=== PATIENT | female | born 1950 | race Caucasian/White ===

== ENCOUNTER 2021-07-13 10:17 | Day surgery (SDC) | payer MEDICARE, SELFPAY ==
[2021-07-09 12:51] VITALS: BMI 25.0
--- NOTE | 2021-07-11 13:02 | P.CONAN_ITS ---
Documented by User: Olga Mccormick NP 07/11/21 13:03 HPI - Anesthesia Eval Consult details Narrative: 71yo F for Colonoscopy [facility] Past Medical History Medical History (Updated 07/09/21 @ 12:50 by Geneva Giles RN) Asthma COPD (chronic obstructive pulmonary disease) Lupus Raynauds disease Renal stones Surgical History Surgical History (Updated 07/09/21 @ 12:51 by Geneva Giles RN) H/O colonoscopy Hx of appendectomy Hx of tonsillectomy Social History Social History Patient Tobacco Use Status: Former Tobacco user Tobacco use type: Cigarette Smoked in Last 30 Days: No Use of substances other than those prescribed or required for medical reasons: No Are you DNR?: No Advance Directives: No Advance Directives Information Provided: Yes Recently lost weight without trying: No Nutrition Risks: No Nutritional Risk Meds Allergies Allergy/AdvReac Type Severity Reaction Status Date / Time aspirin [ASA] AdvReac Unknown Verified 07/13/21 11:09 epinephrine AdvReac Fainting Verified 07/13/21 10:40 Home Medications Medication Instructions Recorded Confirmed Last Taken Type multivitamin 1 tab PO DAILY 07/09/21 07/09/21 Unknown History Exam Exam Date and Time: July 11, 2021 1302 Height,Weight and Vital Signs: Height 5 ft 0.5 in Weight 58.967 kg Assessment and Plan Assessment Anesthesia Assessment: Chart Reviewed Documented by User: Fabi Murcia MD 07/13/21 11:51 [facility] Past Medical History Medical History (Updated 07/09/21 @ 12:50 by Geneva Giles RN) Asthma COPD (chronic obstructive pulmonary disease) Lupus Raynauds disease Renal stones Family History Family history of problems with anesthesia: No Surgical History Surgical History (Updated 07/09/21 @ 12:51 by Geneva Giles RN) H/O colonoscopy Hx of appendectomy Hx of tonsillectomy History of Problems with Anesthesia: No Social History Social History Patient Tobacco Use Status: Former Tobacco user Tobacco use type: Cigarette Smoked in Last 30 Days: No Use of substances other than those prescribed or required for medical reasons: No Are you DNR?: No Advance Directives: No Advance Directives Information Provided: Yes Recently lost weight without trying: No Nutrition Risks: No Nutritional Risk Meds Allergies Allergy/AdvReac Type Severity Reaction Status Date / Time aspirin [ASA] AdvReac Unknown Verified 07/13/21 11:09 epinephrine AdvReac Fainting Verified 07/13/21 10:40 Home Medications Medication Instructions Recorded Confirmed Last Taken Type multivitamin 1 tab PO DAILY 07/09/21 07/09/21 Unknown History Exam Height,Weight and Vital Signs: Height 5 ft 0.5 in Weight 58.967 kg Vital Signs Temp Pulse Resp BP Pulse Ox 07/13/21 11:49 98.9 F 72 16 126/78 99 Airway Mallampati Class: II TM Dist: >3cm Neck ROM: Full Loose/Missing/Broken Teeth: No Heart: RRR Lungs: CTAB Assessment and Plan Assessment Anesthesia Assessment: Anesthesia Plan Discussed Final Anesthetic Review Family History of Problems with Anesthesia: No History of Problems with Anesthesia: No NPO: Yes ASA Class: II Final Preanesthetic Review: No Changes in Pt Med Stat, Meds/Allgs Chart Reviewed, Consent Obtained/Reviewed and Anes Risks/Benef Reviewed Patient Risk: Low Procedure Risk: Low Assessment/Block/Sedation in SS: Assess/Block/Sedation-SS Anesthetic Plan Anesthetic Plan: MAC: Disposition: Standard PACU
[2021-07-13 10:41] VITALS: BMI 21.9
--- NOTE | 2021-07-13 11:10 | PC.NURSE ---
assisted md bryant with concerns for abdominal wall bumps. assessed by bedside. bialterl hands red and cold. has a history of raynauds.
[2021-07-13] MEDS: Lactated Ringers 1,000 ML 100 ML IVCONT (11:18)
[2021-07-13 11:49] VITALS: BP 126/78; PULSE 72; RESP 16; TEMP 37.2; O2SAT 99
--- NOTE | 2021-07-13 13:13 | PM.OP ---
Brief Operative Note Date of Service: 07/13/21 Pre-op diagnosis: Screening Post-op diagnosis: other (Colon polyps) Procedure: Colonoscopy to the cecum and TI with cold snare polypectomy x 2 Surgeon: Ras Lester Anesthesia: MAC Was an Motion Picture Commentator used for this Procedure?: No Estimated blood loss (mL): 2.0 Pathology: other (A. Colon polyp at 20cm) Condition: stable Disposition: PACU
[2021-07-13 13:14] VITALS: BP 99/57; PULSE 72; RESP 15; TEMP 36.3; O2SAT 97
[2021-07-13 13:29] VITALS: BP 119/73; PULSE 68; RESP 16; TEMP 36.3; O2SAT 100
--- NOTE | 2021-07-14 00:01 | OP_ITS ---
SURGEON: Ras Lester MD INDICATIONS: The patient presents for evaluation of colorectal cancer screening. Full consent obtained from her for this, including risks of bleeding and perforation. PREOPERATIVE DIAGNOSIS: Colorectal cancer screening. POSTOPERATIVE DIAGNOSIS: PROCEDURE PERFORMED: Colonoscopy to the cecum and terminal ileum with cold snare polypectomy. ESTIMATED BLOOD LOSS: COMPLICATIONS: ANESTHESIA: Monitored anesthesia care. ASSISTANTS: SPECIMENS: POSTOPERATIVE DIAGNOSES: Colorectal cancer screening, colon polyps, diverticulosis, and internal hemorrhoids. DESCRIPTION OF PROCEDURE: The patient was placed in the left lateral decubitus position. The digital rectal exam revealed no abnormalities. The Olympus video pediatric colonoscope was entered into the rectum and advanced easily to the cecum. Once in the cecum, I did identify normal-appearing cecal pouch with appendiceal orifice and a normal-appearing ileocecal valve. The terminal ileum was cannulated and appeared normal. The scope was withdrawn back in the colon. The entire cecum and ileocecal valve appeared normal. The scope was slowly withdrawn assessing all mucosal surfaces carefully. Preparation was excellent. In the ascending colon, there was an approximately 6 to 8 mm grossly adenomatous polyp, which was removed with cold snare polypectomy. However, the specimen was not recovered. The polypectomy site appeared clean, without any sign of residual polyp nor significant bleeding. At 20 cm, there was an approximately 6 mm polyp, which was removed with the cold snare polypectomy and recovered by suction. The polypectomy site appeared clean, without any sign of residual polyp nor any significant bleeding. I did not visualize any other polyps, colitis, or angiodysplasia. There was a mild amount of sigmoid diverticulosis. In the rectum, scope was retroflexed visualizing internal hemorrhoids, but no other pathology. The rectal mucosa appeared normal. The scope was straightened and withdrawn from the patient. She tolerated the procedure well and was returned to recovery area in stable condition. IMPRESSION: 1. Colon polyps, status post cold snare polypectomy. 2. Diverticulosis. 3. Internal hemorrhoids. PLAN: The results of the pathology will be checked. I would recommend a repeat colonoscopy in 5 years for further surveillance. She will otherwise continue her dietary regimen of increased fiber in order to keep her bowel movements more regular. She will see me again on a p.r.n. basis. She was advised not to use any aspirin and NSAIDs for 1 week. MD JAYDA Pillai/GERARD / [id number]
== END 2021-07-13 14:10 | disposition home or self-care (01) ==
PROVIDERS: PCP Family Medicine; Visit Provider Internal Medicine
PROC: 0DJD8ZZ Inspection of Lower Intestinal Tract, Via Natural or Artificial Opening Endoscopic (ICD-10-PCS; CPT 45378; principal; 2021-07-13 11:30)
DX: Z12.11 Encounter for screening for malignant neoplasm of colon (principal); D12.5 Benign neoplasm of sigmoid colon; K57.30 Diverticulosis of large intestine without perforation or abscess without bleeding; K64.8 Other hemorrhoids; K59.00 Constipation, unspecified; J44.9 Chronic obstructive pulmonary disease, unspecified; M32.9 Systemic lupus erythematosus, unspecified; I73.00 Raynaud's syndrome without gangrene; Z87.442 Personal history of urinary calculi; Z88.8 Allergy status to other drugs, medicaments and biological substances
CPT/HCPCS: 45385; 88305